=== PATIENT | female | born 1930 | race Caucasian/White ===

== ENCOUNTER 2017-04-29 05:50 | Day surgery (SDC) | payer MEDICARE, OTHER ==
[2017-04-29] MEDS ORDERED: Ketamine HCl 50 MG/ML IJ ONE (05:51)
[2017-04-29] MEDS ORDERED: DIPRIVAN 200 MG/20 ML IV ONE (05:51)
[2017-04-29] MEDS ORDERED: Lactated Ringers 1,000 ML IV SCH (06:00)
--- NOTE | 2017-04-29 08:00 | OP ---
SURGERY DATE/TIME: 04/29/2017 0700 PREOPERATIVE DIAGNOSIS: Change in bowel habits. POSTOPERATIVE DIAGNOSIS: Moderate to severe sigmoid diverticulosis. PROCEDURE: Colonoscopy. SURGEON: Dr. Alaniz. ANESTHESIA: MAC. Medications given by anesthesia department. HISTORY: The patient is an 86 year-old white female who reports she had change in her bowel habits particularly in the mornings where she would have a bowel movement and then have three or four thereafter. The patient reports that she cannot remember when she last had a colonoscopy more than ten years ago at least. The patient was felt the need to have endoscopic evaluation. She was appraised of the risks of the procedure including the risk of perforation, phlebitis, untoward reaction to medication, bleeding and missed lesions. The patient verbalized her understanding and desired to have the procedure performed. DESCRIPTION OF PROCEDURE: The patient was given the medications by the anesthesia department. She had continuous pulse oximetry, ECG monitoring, intermittent blood pressure monitoring and tidal CO2 monitoring during the examination. She was placed in the left lateral decubitus position. A digital rectal examination was performed and revealed normal anal sphincter tone and no masses. The flexible Olympus pediatric colonoscope was used to intubate the rectum. A view of the colon was developed sequentially to the cecum. Upon insertion and withdrawal was noted moderate to severe sigmoid diverticulosis otherwise no mucosal lesions were encountered. The scope was removed from the patient who tolerated the procedure well and was sent back to OP recovery in good condition. The prep was noted to be fair to good.
[2017-04-29 09:08] VITALS: BP 169/90; PULSE 66; O2SAT 97
== END 2017-04-29 09:00 | disposition home or self-care (01) ==
LOC: SDC 05:50
PROVIDERS: ATTEND Family Medicine
PROC: 0DJD8ZZ Inspection of Lower Intestinal Tract, Via Natural or Artificial Opening Endoscopic (ICD-10-PCS; principal; 2017-04-29)
DX: K57.30 Diverticulosis of large intestine without perforation or abscess without bleeding (principal); R19.4 Change in bowel habit
CPT/HCPCS: 99100; J2704

== ENCOUNTER 2017-09-14 00:52 | Emergency (ER) | payer MEDICARE, OTHER ==
[2017-09-14] MEDS ORDERED: Norflex 60 MG/2 ML ONE (01:42)
[2017-09-14] MEDS: Norflex 60 MG/2 ML IM ONE (01:44)
--- NOTE | 2017-09-14 01:48 | ERPHSYRPT ---
- History of Present Illness Time Seen by Provider: 09/14/17 01:41 Source: patient Exam Limitations: no limitations Patient Subjective Stated Complaint: pt states she has been having increased pain in her mid back tonight after cleaning her oven today. Triage Nursing Assessment: pt alert and oriented, asnwers questions approp pt ambulatory with slow gait. pt short of breath after walking from waiting room to er room. o2 sat 95% at rest. Physician History: patient presents with back pain approximately 2 hours prior to arrival to ED. Patient states she neal cleaning her oven and house today. Noted she had been bending and stooping quite a bit. Patient went to bed approximate 8 PM and awaken with bilateral lower back pain. States pain is tight, localize an intermittent. Pain is worse with movement and walking and decreases with lying still. Patient denies any fever, chills,chest pain, shortness of breath, palpitation, dizziness, weakness, abdominal/back pain or urinary symptoms. 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 prior to arrival Method of Injury: bending, lifting Quality: aching Back Pain Location: lumbar spine Severity of Pain-Max: mild Severity of Pain-Current: none Modifying Factors: Improves With: pain medication Associated Symptoms: No fever, No chills, No loss of bowel control, No nausea, No vomiting, No problems urinating, No light-headedness, No dizziness, No numbness in legs/feet, No weakness, No sensory/motor loss Previous symptoms: same symptoms as today Allergies/Adverse Reactions: sulfamethoxazole [From Bactrim] Allergy (Intermediate, Verified 09/14/17 01:25) Rash trimethoprim [From Bactrim] Allergy (Intermediate, Verified 09/14/17 01:25) Rash bandaids Allergy (Intermediate, Uncoded 09/14/17 01:25) Rash tape Adverse Reaction (Intermediate, Uncoded 09/14/17 01:25) Rash Home Medications: Losartan Potassium 50 mg [Cozaar 50 MG] 100 mg PO DAILY 05/31/14 [History] Metoprolol Tartrate 25 mg [Lopressor 25MG Tab] 25 mg PO BID 05/31/14 [ History] Simvastatin [Zocor] 20 mg PO HS 05/31/14 [History] Amlodipine Besylate 5 mg [Norvasc 5 mg] 2.5 mg PO DAILY 11/27/15 [History] Aspirin 81 mg PO DAILY 11/27/15 [History] Calcium Carbonate/Vitamin D3 [Calcium 500 + Vit D Caplet] 1 each PO BID [History] Lutein [Natural Lutein] 20 mg PO DAILY 11/27/15 [History] Multivitamin with Minerals [One Daily Complete] 1 each PO DAILY 11/27/15 [ History] Hancock-3 Fatty Acids/Fish Oil [Fish Oil 1,000 mg Capsule] 1,000 mg PO BID [History] Omeprazole 20 MG [Prilosec 20 mg] 20 mg PO DAILY 11/27/15 [History] Diclofenac Sodium Gel [Voltaren GEL] 2 gm TP QID 04/27/17 [History] Hx Tetanus, Diphtheria Vaccination/Date Given: No Hx Influenza Vaccination/Date Given: Yes Hx Pneumococcal Vaccination/Date Given: Yes Immunizations Up to Date: No - Review of Systems Constitutional: No Symptoms, No Fever, No Chills Eyes: No Symptoms Ears, Nose, & Throat: No Symptoms Respiratory: No Symptoms, No Cough, No Dyspnea Cardiac: No Symptoms, No Chest Pain, No Edema, No Syncope Abdominal/Gastrointestinal: No Symptoms, No Abdominal Pain, No Nausea, No Vomiting, No Diarrhea Genitourinary Symptoms: No Symptoms, No Dysuria Musculoskeletal: Back Pain, No Neck Pain Skin: No Symptoms, No Rash Neurological: No Dizziness, No Focal Weakness, No Sensory Changes Psychological: No Symptoms Endocrine: No Symptoms All Other Systems: Reviewed and Negative - Past Medical History Pertinent Past Medical History: Yes Neurological History: TIA ENT History: Cataracts Cardiac History: Coronary Artery Disease, High Cholesterol, Hypertension Respiratory History: No Pertinent History Endocrine Medical History: No Pertinent History Musculoskeletal History: Arthritis GI Medical History: GERD History: No Pertinent History Psycho-Social History: No Pertinent History Female Reproductive Disorders: No Pertinent History, Fibroids Other Medical History: shingles - Past Surgical History Past Surgical History: Yes Neuro Surgical History: No Pertinent History Cardiac: Cardiac Catheterization, Cardiac Stent Respiratory: No Pertinent History Gastrointestinal: Cholecystectomy Genitourinary: No Pertinent History Musculoskeletal: Joint Replacement, Other Female Surgical History: Hysterectomy Other Surgical History: back surgery,knee replacement, wrist surgery - Social History Smoking Status: Former smoker Exposure to second hand smoke: No Drug Use: none Patient Lives Alone: Yes - Nursing Vital Signs Nursing Vital Signs: Initial Vital Signs Temperature 99.2 F 09/14/17 01:16 Pulse Rate 69 09/14/17 01:16 Respiratory Rate 18 09/14/17 01:16 Blood Pressure 144/60 09/14/17 01:16 Pain Scale Pain Intensity 3 - Physical Exam General Appearance: no apparent distress, alert Eye Exam: PERRL/EOMI, eyes nml inspection Neck Exam: normal inspection, non-tender, supple, full range of motion, No meningismus, No midline tenderness Respiratory Exam: normal breath sounds, lungs clear, No respiratory distress Cardiovascular Exam: regular rate/rhythm, normal heart sounds Gastrointestinal Exam: soft, No tenderness, No mass Back Exam: decreased range of motion, muscle spasm (Para-lumbar tenderness), No normal range of motion Extremity Exam: normal inspection, normal range of motion, No calf tenderness, No parasthesia, No pedal edema Peripheral Pulses: dorsalis-pedis (R): 2+, dorsalis-pedis (L): 2+ Neurologic Exam: alert, oriented x 3, 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, 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, normal mood/affect, nml station & gait, sensation nml, No motor deficits Skin Exam: normal color, warm, dry, No rash SpO2 Interpretation: normal SpO2: 95 Oxygen Delivery: Room Air - Course Nursing assessment & vital signs reviewed: Yes Ordered Tests: Medication Summary Discontinued Medications Generic Name Dose Route Start Last Admin Trade Name Nolanq PRN Reason Stop Dose Admin Orphenadrine Citrate 30 mg 09/14/17 01:40 09/14/17 01:44 Norflex 60 Mg/2 Ml IM 09/14/17 01:41 30 mg STAT ONE Administration Orphenadrine Citrate Confirm 09/14/17 01:42 Norflex 60 Mg/2 Ml Administered 09/14/17 01:43 Dose 60 mg .ROUTE .STK-MED ONE - Progress Progress: improved Progress Note: 09/14/17 01:50 Will give pt. Norflex injection for back pain 09/14/17 02:54 States feel better and wants to go home Counseled pt/family regarding: diagnosis - Departure Time of Disposition: 02:55 Departure Disposition: Home Clinical Impression: Back pain Condition: Stable Critical Care Time: No Referrals: [facility] [Primary Care Provider] - Instructions: Low Back Pain (DC) Additional Instructions: RX: Flexeril May take Motrin 600mg every 6-8 hours with food and/or Tylenol 1000mg every 4 hours for pain Return for worse back pain, numbness, tingling, weakness, vomiting or any problems Prescriptions: Cyclobenzaprine HCl [Flexeril] 5 mg PO Q6-8HPRN PRN 7 Days #15 tablet PRN Reason: Muscle Spasms
[2017-09-14 04:22] VITALS: BP 128/56; PULSE 74; O2SAT 93
== END 2017-09-14 03:37 | disposition home or self-care (01) ==
LOC: ED 00:52
DX: M54.5 Low back pain (principal); X50.0XXA Overexertion from strenuous movement or load, initial encounter; Y93.E9 Activity, other interior property and clothing maintenance; Y92.000 Kitchen of unspecified non-institutional (private) residence as the place of occurrence of the external cause; I10 Essential (primary) hypertension; E78.00 Pure hypercholesterolemia, unspecified; I25.10 Atherosclerotic heart disease of native coronary artery without angina pectoris; M19.90 Unspecified osteoarthritis, unspecified site; K21.9 Gastro-esophageal reflux disease without esophagitis; Z79.899 Other long term (current) drug therapy
CPT/HCPCS: 96372; 99283; J2360

== ENCOUNTER 2018-10-14 12:57 | Day surgery (SDC) | payer MEDICARE, OTHER ==
[2018-10-14] MEDS ORDERED: Xylocaine 1% Vial 30 ML PF IJ ONE (12:58)
[2018-10-14] MEDS ORDERED: Depo-Medrol 40 MG/ML IM ONE (12:58)
[2018-10-14] MEDS ORDERED: Xylocaine-Mpf 2% 5 Ml Vial IJ ONE (12:58)
--- NOTE | 2018-10-14 16:23 | XRAY ---
Indication: Bilateral L1-L4 MBB. Intraoperative fluoroscopy was provided for 18 seconds. Single digital spot image submitted for interpretation demonstrates posterior needle tips projecting over the expected course of the left and right L1-L4 nerve roots. Correlate with intraoperative findings/report.
--- NOTE | 2018-10-14 16:42 | XRAY ---
18 seconds of fluoroscopy was used in surgery for bilateral L1-L2, L2-L3, and L3-L4 MBB.
== END 2018-10-14 14:38 | disposition home or self-care (01) ==
LOC: SDC-PAIN 12:57
PROVIDERS: ATTEND Psychiatry & Neurology Pain Medicine
DX: M47.816 Spondylosis without myelopathy or radiculopathy, lumbar region (principal); I10 Essential (primary) hypertension; I25.10 Atherosclerotic heart disease of native coronary artery without angina pectoris; Z79.899 Other long term (current) drug therapy
CPT/HCPCS: 72020; 77002; J1030; J2001

== ENCOUNTER 2018-11-04 11:24 | Day surgery (SDC) | payer MEDICARE, OTHER ==
[2018-11-04] MEDS ORDERED: Marcaine 0.5% SDV 10 ML IJ ONE (11:25)
[2018-11-04] MEDS ORDERED: Depo-Medrol 40 MG/ML IM ONE (11:25)
[2018-11-04] MEDS ORDERED: DIPRIVAN 200 MG/20 ML IV ONE (12:46)
[2018-11-04] MEDS ORDERED: Ketamine HCl 50 MG/ML ONE (12:46)
[2018-11-04] MEDS ORDERED: Lactated Ringers 1,000 ML IV ONE (13:58)
--- NOTE | 2018-11-04 16:26 | XRAY ---
6 seconds fluoroscopy time in surgery for bilateral L1-L4 MBB.
--- NOTE | 2018-11-05 06:54 | XRAY ---
Indication: Bilateral L1-L4 MBB. Intraoperative fluoroscopy was provided for 6 seconds. A PA digital spot film demonstrates posterior needle tips projected over the expected course of the left and right L-1L4 nerve roots. Correlate with intraoperative findings/report.
== END 2018-11-04 13:17 | disposition home or self-care (01) ==
LOC: SDC-PAIN 11:24
PROVIDERS: ATTEND Psychiatry & Neurology Pain Medicine
DX: M47.816 Spondylosis without myelopathy or radiculopathy, lumbar region (principal); I10 Essential (primary) hypertension; I25.10 Atherosclerotic heart disease of native coronary artery without angina pectoris; Z79.899 Other long term (current) drug therapy
CPT/HCPCS: 64493; 64494; 64495; 72020; 77002; J1030; J2704

== ENCOUNTER 2018-11-25 12:29 | Day surgery (SDC) | payer MEDICARE, OTHER ==
[2018-11-25] MEDS ORDERED: Depo-Medrol 40 MG/ML IM ONE (12:30)
[2018-11-25] MEDS ORDERED: Xylocaine 1% Vial 30 ML PF IJ ONE (12:30)
[2018-11-25] MEDS ORDERED: Marcaine 0.5% SDV 10 ML IJ ONE (12:30)
[2018-11-25] MEDS ORDERED: DIPRIVAN 200 MG/20 ML IV ONE (13:28)
[2018-11-25] MEDS ORDERED: Ketamine HCl 50 MG/ML ONE (13:29)
[2018-11-25] MEDS ORDERED: Lactated Ringers 1,000 ML IV ONE (15:26)
--- NOTE | 2018-11-25 15:31 | XRAY ---
Indication: Left L1-L5 RFA. Intraoperative fluoroscopy was provided for 27 seconds. 3 digital spot images submitted for interpretation demonstrates posterior needle tips projecting over the expected course of the left L1-L4. Correlate with intraoperative findings/report.
--- NOTE | 2018-11-25 16:54 | XRAY ---
27 seconds fluoroscopy time in surgery for left L1-L5 RFA.
== END 2018-11-25 14:13 | disposition home or self-care (01) ==
LOC: SDC-PAIN 12:29
PROVIDERS: ATTEND Psychiatry & Neurology Pain Medicine
DX: M47.816 Spondylosis without myelopathy or radiculopathy, lumbar region (principal); I10 Essential (primary) hypertension; Z86.73 Personal history of transient ischemic attack (TIA), and cerebral infarction without residual deficits; I25.10 Atherosclerotic heart disease of native coronary artery without angina pectoris; Z79.899 Other long term (current) drug therapy
CPT/HCPCS: 64635; 64636; 72100; 77002; 99100; J1030; J2001; J2704

== ENCOUNTER 2019-01-20 14:15 | Day surgery (SDC) | payer MEDICARE, OTHER ==
[2019-01-20] MEDS ORDERED: Depo-Medrol 40 MG/ML IM ONE (14:16)
[2019-01-20] MEDS ORDERED: Xylocaine 1% Vial 30 ML PF IJ ONE (14:16)
[2019-01-20] MEDS ORDERED: Marcaine Mpf 0.5% Vial 30 Ml IJ ONE (14:16)
[2019-01-20] MEDS ORDERED: DIPRIVAN 200 MG/20 ML IV ONE (15:10)
[2019-01-20] MEDS ORDERED: Ketamine HCl 50 MG/ML ONE (15:10)
--- NOTE | 2019-01-20 16:59 | XRAY ---
Indication: Right L1-L4 RFA. Intraoperative fluoroscopy was provided for 24 seconds. 4 digital spot images submitted for interpretation demonstrates posterior needle tips projecting over the expected course of the right L1-L4 nerve roots. Correlate with intraoperative findings/report.
--- NOTE | 2019-01-20 17:04 | XRAY ---
24 seconds fluoroscopy time in surgery for right L1-L4 RFA.
[2019-01-20] MEDS ORDERED: Lactated Ringers 1,000 ML IV ONE (17:06)
== END 2019-01-20 15:52 | disposition home or self-care (01) ==
LOC: SDC-PAIN 14:15
PROVIDERS: ATTEND Psychiatry & Neurology Pain Medicine
DX: M47.816 Spondylosis without myelopathy or radiculopathy, lumbar region (principal); I10 Essential (primary) hypertension; I25.10 Atherosclerotic heart disease of native coronary artery without angina pectoris; Z86.73 Personal history of transient ischemic attack (TIA), and cerebral infarction without residual deficits; Z79.899 Other long term (current) drug therapy
CPT/HCPCS: 64635; 64636; 72100; 77002; 99100; J1030; J2001; J2704